=== PATIENT | female | born 1970 | race Caucasian/White ===

== ENCOUNTER 2016-08-24 | Emergency (ER) | payer MEDICARE, OTHER ==
[~2016-08-24] MED LIST: ASPIR 8181 MG PO; CLARITIN10 MG PO; CRESTOR10 MG PO; DIABETA 5 MG TAB5 MG PO; FAMOTIDINE40 MG PO; GLIMEPIRIDE2 MG PO; HUMALOG PUMP; HYDROCHLOROTHIA25 MG PO; INVOKANA100 MG PO; JANUVIA100 MG PO; LISINOPRIL5 MG PO; METOPROLOL SUCC25 MG PO; NEURONTIN 400400 MG PO; OMEGA-31000 MG PO; OXCARBAZEPINE600 MG PO; PANTOPRAZOLE SO40 MG PO; PERCOCET 5-3251 EACH PO; PLAVIX 75 MG TA75 MG PO; STOOL SOFTENER1 EACH PO; TIZANIDINE HCL4 MG PO; TRILEPTAL300 MG PO; VENLAFAXINE HCL75 MG PO; VIT D PO
== END 2016-08-24 23:40 | disposition left against medical advice (07) ==
DX: Z53.21 Procedure and treatment not carried out due to patient leaving prior to being seen by health care provider (principal)

== ENCOUNTER 2016-11-28 08:45 | Observation (INO) | payer MEDICARE, OTHER ==
[~2016-11-28] VITALS: Ht 162.6 cm; Wt 87.1 kg
[2016-11-28 10:30] LABS: HEMOGLOBIN 16.1 gm/dl (12.3-15.3); RED BLOOD COUNT 4.96 M/UL (4.00-5.10); WHITE BLOOD COUNT 7.3 K/UL (4.5-11.0)
[2016-11-28 10:52] LABS: BUN/CREATININE RATIO 20 (0-10)
[2016-11-29 06:02] LABS: HEMOGLOBIN 15.7 gm/dl (12.3-15.3); RED BLOOD COUNT 4.8 M/UL (4.00-5.10); WHITE BLOOD COUNT 6.8 K/UL (4.5-11.0)
[2016-11-29 06:21] LABS: BUN/CREATININE RATIO 23 (0-10)
== END 2016-11-30 00:36 | disposition other institution (70) ==
LOC: ER1 08:45 → ZEROF 13:20 → MED SURG 4 16:17 → M/S 18:15
PROVIDERS: Physician Assistant; Specialist/Technologist Athletic Trainer; ADMIT Internal Medicine
DX: E11.649 Type 2 diabetes mellitus with hypoglycemia without coma (principal); D75.1 Secondary polycythemia; D69.6 Thrombocytopenia, unspecified; I25.10 Atherosclerotic heart disease of native coronary artery without angina pectoris; I73.9 Peripheral vascular disease, unspecified; I10 Essential (primary) hypertension; E78.5 Hyperlipidemia, unspecified; E66.9 Obesity, unspecified; F17.210 Nicotine dependence, cigarettes, uncomplicated; Z86.69 Personal history of other diseases of the nervous system and sense organs; Z87.440 Personal history of urinary (tract) infections; Z98.61 Coronary angioplasty status; Z88.5 Allergy status to narcotic agent; Z88.8 Allergy status to other drugs, medicaments and biological substances
CPT/HCPCS: ECHO; 36415; 70450; 70496; 70498; 70551; 71010; 80048; 80053; 80061; 82550; 82553; 82962; 83036; 83874; 84484; 85025; 85610; 85730; 93005; 93306; 93880; 97535; 99285; G0378; J7050; Q9963

== ENCOUNTER → 2020-08-02 | Outpatient (CLI) | payer OTHER ==
[~2020-08-02] MED LIST changes: +BRILINTA90 MG PO; +COLACE 100MG C100 MG PO; +DICLO TP; +EFFEXOR XR150 MG PO; +FARXIGA10 MG PO; +FLEXERIL 10 MG10 MG PO; +GABAPENTIN600 MG PO; +HYDROCHLOROTH12.5 MG PO; +HYDROXYZINE PAM25 MG PO; +LISINOPRIL2.5 MG PO; +LOVAZA1 GM PO; +MECLIZINE HCL25 MG PO; +NITROSTAT0.4 MG SL; +NORCO 7.5-3251 EACH PO; +NUEDEXTA 20-101 EACH PO; +OXTELLAR XR600 MG PO; +TORADOL 10 MG T10 MG PO; +TRESIBA FL100 UNIT/1 SQ; +TRULICITY1.5 MG/0.5 SQ; +VIT D3 PO
== END ==
LOC: RAD 16:35
DX: M25.552 Pain in left hip (principal)
CPT/HCPCS: 73502

== ENCOUNTER 2021-01-28 09:06 | Emergency (ER) | payer OTHER | END 2021-01-28 11:35 | disposition home or self-care (01) | LOC: ER1 09:06 | DX: H91.92 Unspecified hearing loss, left ear (principal); I11.9 Hypertensive heart disease without heart failure; E11.9 Type 2 diabetes mellitus without complications; I25.10 Atherosclerotic heart disease of native coronary artery without angina pectoris; G40.909 Epilepsy, unspecified, not intractable, without status epilepticus | CPT/HCPCS: 70450; 99283 ==

== ENCOUNTER → 2021-02-14 | Outpatient (CLI) | payer OTHER | LOC: MAMO 15:00 | DX: Z12.31 Encounter for screening mammogram for malignant neoplasm of breast (principal) | CPT/HCPCS: 77063; 77067 ==

== ENCOUNTER → 2021-04-06 | Outpatient (CLI) | payer OTHER | LOC: US 13:08 | DX: R22.2 Localized swelling, mass and lump, trunk (principal) | CPT/HCPCS: 76604 ==

== ENCOUNTER 2021-04-12 15:42 | Emergency (ER) | payer OTHER ==
[2021-04-12 22:21] LABS: HEMOGLOBIN 14.3 gm/dl (12.3-15.3); RED BLOOD COUNT 4.31 M/UL (4.00-5.10); WHITE BLOOD COUNT 7.9 K/UL (4.5-11.0)
[2021-04-12 22:43] LABS: BUN/CREATININE RATIO 20 (0-10)
== END 2021-04-12 23:55 | disposition short-term general hospital (02) ==
LOC: ER1 15:42
PROVIDERS: Emergency Medicine
DX: S06.5X0A Traumatic subdural hemorrhage without loss of consciousness, initial encounter (principal); Z88.1 Allergy status to other antibiotic agents; Z88.5 Allergy status to narcotic agent; Z88.8 Allergy status to other drugs, medicaments and biological substances; Z20.822 Contact with and (suspected) exposure to COVID-19; W18.30XA Fall on same level, unspecified, initial encounter; Y92.009 Unspecified place in unspecified non-institutional (private) residence as the place of occurrence of the external cause
CPT/HCPCS: 36430; 70450; 73502; 80048; 85025; 85610; 86900; 86901; 96374; 96375; 99285; J1100; J1200; J2060; P9035; P9037; U0002

== ENCOUNTER → 2021-04-26 | Outpatient (CLI) | payer OTHER | LOC: KOH-I 08:00 | DX: S06.5X9A Traumatic subdural hemorrhage with loss of consciousness of unspecified duration, initial encounter (principal) | CPT/HCPCS: 70450 ==

== ENCOUNTER → 2021-06-26 | Outpatient (CLI) | payer OTHER ==
[2021-06-26 11:09] LABS: WBC (AUTOMATED 7 10^3 (0-5)
[2021-06-26 11:10] LABS: WBC (AUTOMATED 14 10^3 (0-5)
[2021-06-26 11:20] LABS: GLUCOSE,CSF 116 mg/dL (50-80); TOTAL PROTEIN,CSF 50 mg/dL (20-45)
[2021-06-27 12:11] LABS: ANGIOTENSIN-CONVERTING ENZYME 22 U/L (14-82)
[2021-06-27 13:11] LABS: RHEUMATOID ARTHRITIS FACTOR <10.0 IU/mL (<14.0); SJOGREN'S ANTI-SS-B <0.2 AI (0.0-0.9)
[2021-06-27 14:11] LABS: LYME IGG/IGM AB <0.91 ISR (0.00-0.90)
== END ==
LOC: RAD 07:30 → OR 07:30 → RAD 07:48
PROVIDERS: Nurse Practitioner Family
DX: G35 Multiple sclerosis (principal); R56.9 Unspecified convulsions
CPT/HCPCS: 36415; 80183; 82040; 82164; 82784; 82945; 83520; 83873; 83916; 84157; 85652; 86038; 86235; 86431; 86618; 87015; 87070; 87116; 87205; 87210; 89051

== ENCOUNTER 2021-07-14 12:24 | Emergency (ER) | payer OTHER | END 2021-07-14 14:55 | disposition home or self-care (01) | LOC: ER1 12:24 | DX: S01.81XA Laceration without foreign body of other part of head, initial encounter (principal); S60.222A Contusion of left hand, initial encounter; I10 Essential (primary) hypertension; E11.9 Type 2 diabetes mellitus without complications; F17.200 Nicotine dependence, unspecified, uncomplicated; Z79.4 Long term (current) use of insulin; W19.XXXA Unspecified fall, initial encounter; Y92.009 Unspecified place in unspecified non-institutional (private) residence as the place of occurrence of the external cause | CPT/HCPCS: 12014; 70450; 72125; 99284 ==

== ENCOUNTER → 2021-07-24 | Outpatient (CLI) | payer OTHER | LOC: EXRD 13:55 | DX: M25.552 Pain in left hip (principal); M53.3 Sacrococcygeal disorders, not elsewhere classified; Z98.890 Other specified postprocedural states; R93.7 Abnormal findings on diagnostic imaging of other parts of musculoskeletal system | CPT/HCPCS: 73502 ==

== ENCOUNTER 2021-08-18 22:40 | Emergency (ER) | payer OTHER ==
[2021-08-18 23:38] LABS: HEMOGLOBIN 14.8 gm/dl (12.3-15.3); RED BLOOD COUNT 4.53 M/UL (4.00-5.10); WHITE BLOOD COUNT 6.6 K/UL (4.5-11.0)
[2021-08-19 00:17] LABS: BUN/CREATININE RATIO 23 (0-10)
== END 2021-08-20 10:00 ==
LOC: ER1 22:40
PROVIDERS: Physician Assistant Medical
DX: T43.212A Poisoning by selective serotonin and norepinephrine reuptake inhibitors, intentional self-harm, initial encounter (principal); F17.210 Nicotine dependence, cigarettes, uncomplicated; Z88.5 Allergy status to narcotic agent; Z88.8 Allergy status to other drugs, medicaments and biological substances; Z20.822 Contact with and (suspected) exposure to COVID-19
CPT/HCPCS: 71045; 80053; 80307; 81001; 82550; 82553; 82962; 83735; 84484; 84702; 85025; 93005; 99285; G0480; Q0177; U0002